=== PATIENT | female | born 1935 | race Hispanic/Latino ===

== ENCOUNTER 2016-05-25 10:52 | Inpatient (IN) | payer MEDICARE ==
--- NOTE | 2016-05-25 12:04 | XRay Report ---
AP CHEST History: Chest pain. Findings: There is mild diffuse interstitial coarsening. The lungs are hyperexpanded but clear. No infiltrate, pleural fluid or pneumothorax is detected. The cardiac silhouette and pulmonary vasculature are within normal limits for technique. The bony thorax is unremarkable. IMPRESSION: Changes consistent with COPD. No acute cardiopulmonary process.
[2016-05-25 12:08] LABS: Creatine Kinase MB 1.4 ng/mL (0.0-4.0)
[2016-05-25 12:10] LABS: Basophils % (Auto) 0.9 % (0.0-1.8); Eosinophils % (Auto) 0.8 % (0.0-4.3); Mean Corpuscular HGB Conc 32 % (30-34); Mean Corpuscular Hemoglobin 30 pg (28-32); Mean Corpuscular Volume 96 fl (79-97); Platelet Count 256 K/mm3 (140-440); Red Blood Count 3.98 M/mm3 (3.65-5.03); Red Cell Distribution Width 14.1 % (13.2-15.2)
[2016-05-25 12:13] LABS: Calcium 9.1 mg/dL (8.4-10.2); Chloride 99.4 mmol/L (98-107); Potassium 4.1 mmol/L (3.6-5.0)
--- NOTE | 2016-05-25 13:02 | Emergency Department Report ---
HPI - General Chief Complaint: Chest Pain Time Seen by Provider: 05/25/16 11:36 - HPI HPI: Chief complaint: Difficulty swallowing HPI: Patient is a 80-year-old female with a history of COPD he was recently in the hospital for COPD exacerbation and pneumonia. Patient seems to be having increasing difficulty swallowing ever since discharge 2-3 weeks ago. However over the last week it has gotten significantly worse to the point where she is unable to keep anything down liquid or food. Patient states that when she was in the hospital for pneumonia she had a upper endoscopy done by Dr. Fernandez that the family states was negative. According to the family this was done for some sort of slow bleed. Patient also had a colonoscopy. Mode of arrival: EMS Source: Patient and family member] Began: See above Duration: See above Context: Patient has COPD and still smokes about 3 cigarettes a day. Patient also has history of depression. Since she came home from the hospital her family states initially she would not use her nebulizer treatments. Patient is on home O2 all the time. Quality: Patient denies chest pain but states when she drinks something she feels a knot in her chest. Severity: 6 out of 10 Improved with: Nothing Worsened with: Drinking Associated signs and symptoms: No fever, nausea, vomiting or diarrhea ED Past Medical Hx - Past Medical History Previous Medical History?: Yes Hx Hypertension: Yes Hx Heart Attack/AMI: Yes Hx Congestive Heart Failure: Yes Hx COPD: Yes Additional medical history: Fibromyalgia. Osteoporosis. High cholesterol. Abdominal aneruysm. Dementia - Surgical History Hx Coronary Stent: Yes Hx Cholecystectomy: Yes Hx Appendectomy: Yes Additional Surgical History: stent placed june 2014 - Social History Smoking Status: Current Every Day Smoker (3 cigarettes per day) Substance Use Type: None - Medications Home Medications: Home Medications Medication Instructions Recorded Confirmed Last Taken Type Atorvastatin (Nf) [Lipitor] 10 mg PO QHS 06/23/14 07/15/14 10/13/15 History Levothyroxine Sodium [Synthroid] 175 mcg PO QDAY 06/23/14 07/15/14 10/13/15 History Albuterol *Only Ed* [Proventil 2.5 mg IH Q3HRT PRN #60 nebu 06/28/14 07/15/14 10/13/15 Rx 0.5% NEBS] Clopidogrel [Plavix] 75 mg PO BID #60 tablet 06/28/14 07/15/14 10/06/15 Rx Ipratropium/Albuterol Sulfate 1 ampul IH TID #60 ampul.neb 06/28/14 07/15/1403/29 Rx [Duoneb 0.5 mg-3 mg/3 ml Soln] Nebulizer [Compact Ultrasonic 1 each MC QDAY #1 kit 06/28/14 07/15/14 10/13/15 Rx Nebulizer] Nitroglycerin [Nitro Dur] 0.4 mg TD DAILY@0600 #30 patch 06/28/14 07/15/1410/12 Rx HYDROcodone/APAP 10-325 [[place] 1 each PO Q6HR PRN 07/15/14 07/15/14 10/13/15 History 10-325 mg TAB] Potassium Chloride [K-Dur] 20 meq PO QDAY 07/15/14 07/15/14 10/13/15 History Carvedilol [Coreg] 25 mg PO BID #60 tablet 07/18/14 10/13/15 Rx Fluticasone/Salmeterol [Advair 1 puff IH BID #3 disk.w.dev 07/18/14 10/13/15 Rx Diskus 500-50 mcg] Lisinopril [Zestril TAB] 20 mg PO QHS #30 tablet 07/18/14 10/13/15 Rx Tiotropium [Spiriva] 18 mcg IH QDAY 30 Days 07/18/14 10/13/15 Rx predniSONE [Deltasone] 2 tab PO QDAY #7 tablet 07/18/14 10/13/15 Rx ED Review of Systems ROS: Stated complaint: NAUSEA/VOMITING Other details as noted in HPI ROS Constitutional: No fever ENT: No uri symptoms Cardiovascular: No chest pain Respiratory: Chronic sob and cough GI: No nausea vomiting or diarrhea : No dysuria frequency or urgency, Skin: No rash Neuro: No focal weakness or numbness Psych: No depression Noel/lymph: No edema Physical Exam - Physical Exam Vital Signs: Vital Signs 05/25/16 05/25/16 05/25/16 11:19 11:28 11:33 Temperature 98.4 F Pulse Rate 65 Respiratory 19 19 Rate Blood Pressure 143/78 O2 Sat by Pulse 100 Oximetry Physical Exam: GENERAL: The patient is a thin elderly female who appears chronically ill. Patient's vital signs are stable. HEENT: Normocephalic. Atraumatic. Extraocular motions are intact. Patient has moist mucous membranes. NECK: Supple. No meningitic signs are noted. There is no adenopathy noted. CHEST/LUNGS: A few coarse end-expiratory rhonchi. There is no respiratory distress noted. HEART/CARDIOVASCULAR: Regular. There is no tachycardia. There is no gallop rub or murmur. ABDOMEN: Abdomen is soft, nontender. Patient has normal bowel sounds. There is no abdominal distention. SKIN: There is no rash. There is no edema. There is no diaphoresis. NEURO: The patient is awake, alert, and oriented. The patient is cooperative. The patient has no focal neurologic deficits. The patient has normal speech. MUSCULOSKELETAL: There is no tenderness or deformity. There is no limitation range of motion. There is no evidence of acute injury. ED Course Vital Signs 05/25/16 05/25/16 05/25/16 11:19 11:28 11:33 Temperature 98.4 F Pulse Rate 65 Respiratory 19 19 Rate Blood Pressure 143/78 O2 Sat by Pulse 100 Oximetry - Reevaluation(s) Reevaluation #1: 05/25/16 13:03 Patient was given a trial of water and was able to swallow it briefly but it immediately came back up ED Medical Decision Making - Lab Data Result diagrams: 05/25/16 11:29 05/25/16 11:29 Laboratory Tests 05/25/16 11:29 Calcium 9.1 Total Creatine Kinase 27 L CK-MB (CK-2) 1.4 CK-MB (CK-2) Rel Index 5.1 H Troponin T 0.015 - EKG Data -: EKG Interpreted by Ks EKG shows normal: sinus rhythm Rate: normal (71) - EKG Data When compared to previous EKG there are: previous EKG unavailable Interpretation: normal EKG - Radiology Data Radiology results: report reviewed (chest x-ray shows COPD otherwise no acute process.) Critical care attestation.: If time is entered above; I have spent that time in minutes in the direct care of this critically ill patient, excluding procedure time. ED Disposition Clinical Impression: Dysphagia Qualifiers: Dysphagia type: unspecified Qualified Code(s): R13.10 - Dysphagia, unspecified Disposition: OP ADMITTED IP TO THIS HOSP Is pt being admited?: Yes Does the pt Need Aspirin: Yes Condition: Fair Time of Disposition: 13:08 (admit to the hospitalist)
--- NOTE | 2016-05-25 13:29 | Admit Criteria Form ---
Admission Criteria Documentation: GASTROENTEROLOGY GRG Clinical Indications for Admission to Inpatient Care (Place 'X' for any and all applicable criteria): Hospital admission is needed for appropriate care of the patient because of ANY ONE of the following: [ ]I. Hemoperitoneum(7) [ ]II. Ascites requiring acute treatment indicated by ANY ONE of the following( 8)(9): [ ]a) Hemodynamic instability remaining after emergency or observation level care (as appropriate) [ ]b) Peritoneal signs present (eg, abdominal rigidity, rebound tenderness, absent bowel sounds) [ ]c) Tachypnea, Hypoxemia, or other respiratory symptoms remain after emergency or observation level care (as appropriate) [ ]d) Suspected infected ascites as indicated by ANY ONE of the following: [ ]i) Temperature greater than 100 degrees F (37.8 degrees C) [ ]ii) Abdominal pain or tenderness not relieved by paracentesis [ ]iii) Systemic signs of infection (eg, elevated WBC count, fever) [ ]iv) Ascitic fluid analysis consistent with infection ( eg, elevated WBC count): [ ]v) Vital sign abnormality [ ]III. Suspected acute intra-abdominal process indicated by ANY ONE of the following(1)(2)(3)(4)(5): [ ]a) Hemodynamic instability [ ]b) Peritoneal signs present (eg, abdominal rigidity, rebound tenderness, absent bowel sounds) [ ]c) Bowel obstruction suspected (eg, severe vomiting, abdominal distension) [ ]d) Suspected mesenteric ischemia or ischemic colitis(6) [ ]e) Other signs or symptoms of acute abdominal disease (eg, severe pain, free air): [ ]IV. Severe liver disease indicated by ANY ONE of the following(8)(9)(10)(11)( 12)(13)(14): [ ]a) Acute hepatitis (eg, transaminase level greater than 1000 IU/L) [ ]b) Acute elevation of prothrombin time to more than 50% above normal or INR greater than 1.5 [ ]c) Bilirubin greater than 20 mg/dL (342 micromoles/L) (15) [ ]d) New-onset or worsening hepatic encephalopathy [ ]e) Acute liver necrosis [ ]f) Vomiting or dehydration that is severe of persistent [ ]g) Hemodynamic instability due to liver disease [ ]h) Acute renal failure [ ]i) Hepatic abscess [ ]j) Dehydration that is severe or persistent [ ]k) Hepatic hydrothorax(21) [ ]l) Other indications of severe liver disease (eg, persistent fever , ingestion of hepatotoxin) [ ]V. Severe diarrhea indicated by ANY ONE of the following(17)(18)(19)(20)(21)( 22)(23): [ ]a) High fever or other high-risk infection situation [ ]b) Intractable bloody diarrhea (eg, more than 6 bloody stools per day) [ ]c) Suspected Clostridium difficile-associated diarrhea(24) [ ]d) Change in mental status that persists after emergency or observation level care (as appropriate) [ ]e) Severe dehydration (eg, greater than 9% loss of body weight in children) [ ]f) Inability to maintain hydration [ ]g) Peritoneal signs present (eg, abdominal rigidity, rebound tenderness, absent bowel sounds) [ ]h) Abdominal ischemia suspected(6) [ ]i) Hemodynamic instability that persists after emergency or observation level care (as appropriate) [ ]j) Severe electrolyte abnormalities requiring inpatient care [ ]k) Acute renal failure [ ]. Suspected toxic megacolon(5)(6) [X]VII.Severe dysphagia indicated by ANY ONE of the following(25)(26): [ ]a) Suspected esophageal perforation or fistula(27) []b) Suspected cause that requires inpatient care (eg, caustic ingestion, severe esophagitis) (28) [ ]c) Severe dehydration (eg, greater than 9% loss of body weight in children) [X]d) Inability to manage secretions or maintain hydration [ ]e) Hemodynamic instability that persists after emergency or observation level care (as appropriate) [ ]f) Severe electrolyte abnormalities requiring inpatient care [ ]g) Acute renal failure [ ]VIII.Vomiting and ANY ONE of the following (29)(30)(31)(32): [ ]a) High fever or other high-risk infection situation [ ]b) Change in mental status that persists after emergency or observation level care (as appropriate) [ ]c) Severe dehydration (e.g., greater than 9% loss of body weight in children) [ ]d) Peritoneal signs present (e.g., abdominal rigidity, rebound tenderness, absent bowel sounds) [ ]e) Hemodynamic instability that persists after emergency or observation level care (as appropriate) [ ]f) Severe electrolyte abnormalities requiring inpatient care [ ]g) Acute renal failure [ ]h) Bowel obstruction suspected (e.g., severe vomiting, abdominal distension) [ ]i) Vomiting that is severe or persistent after medical treatment [ ]IX. Significant dehydration indicated by ANY ONE of the following(23)(24)(25) [ ]a) Clinical findings of severe dehydration indicated by ANY ONE of the following: [ ]i) Acute loss of weight from baseline (5% of body weight in adults, 9% in pediatric patients) [ ]ii) Hemodynamic instability [ ]iii) Acute renal failure [ ]iv) Serum sodium greater than 150 mEq/L (mmol/L) [ ]b) Dehydration that is persistent indicated by ALL of the following: [ ]i) Oral rehydration therapy not tolerated or insufficient to adequately correct dehydration [ ]ii) Appropriate intravenous treatment (eg, fluids) does not readily correct dehydration hours of (ie, after 12 to 24 of treatment) [ ]X. Gastroparesis and ANY ONE of the following(37)(38)(39): [ ]a) Dehydration that is severe or persistent [ ]b) Severe electrolyte abnormalities requiring inpatient care [ ]c) Acute renal failure [ ]d) Vomiting that is severe or persistent [ ]XI. Complications of transplanted liver indicated by ANY ONE of the following (40)(41): [ ]a) Acute graft rejection requiring inpatient management (eg, intravenous immunosuppression)(42) [ ]b) Failure of transplanted liver as indicated by ANY ONE of the following: [ ]i) Acute hepatitis (eg, transaminase level greater than 1000 International Units per liter (IU/L)) [ ]ii) Acute elevation of prothrombin time to more than 50% above baseline or INR greater than 1.5 [ ]iii) Bilirubin greater than 20 mg/dL (342 micromoles/L) [ ]iv) New-onset or worsening hepatic encephalopathy [ ]v) Acute elevation of serum ammonia level (eg, greater than 210 mcg/dL (150 micromoles/L)) [ ]vi) Acute liver necrosis [ ]c) Infection requiring inpatient management (eg, Hemodynamic instability, need for intravenous antimicrobial treatment)(43)(44)(45)(46)(47)(48)(49)(50) [ ]d) Other complication of transplanted liver (eg, thrombosis, autoimmune hepatitis, variceal bleeding) requiring inpatient management(51)(52) [ ]XII Complications of transplanted pancreas indicated by ANY ONE of the following(53): [ ]a) Acute graft rejection requiring inpatient management (eg, intravenous immunosuppression)(42)(54) [ ]b) Failure of transplanted pancreas as indicated by ANY ONE of the following: [ ]i) Serum amylase greater than 3 times the upper limit of normal or baseline [ ]ii) Serum lipase greater than 3 times the upper limit of normal or baseline [ ]iii) Imaging findings consistent with pancreatic inflammation or necrosis [ ]c) Infection requiring inpatient management (eg, Hemodynamic instability, need for intravenous antimicrobial treatment)(43)(44)(45)(46)(47)(48)(49)(50) [ ]d) Other complication of transplanted liver (eg, thrombosis, autoimmune hepatitis, variceal bleeding) requiring inpatient management(51)(52) [ ]X. Gastroenterology condition and ALL of the following: [ ]a) Symptom or finding for which emergency and observation care have failed or are not considered appropriate (Also use General Criteria: Observation Care as appropriate) [ ]b) Presence of ANY ONE of the following: [ ]i) A General Admission Criteria [ ]ii) A Pediatric General Admission Criteria. The original [facility] [employer] content created by [facility] has been revised. The portions of the content which have been revised are identified through the use of italic text or in bold,and [facility] has neither reviewed nor approved the modified material. All other unmodified content is copyright [facility]. Please see references footnoted in the original [facility] edition 2016 Admission Criteria Met: Yes
--- NOTE | 2016-05-25 16:01 | History and Physical Report ---
History of Present Illness Date of examination: 05/25/16 Date of admission: 05/25/16 13:11 Chief complaint: Difficulty swallowing-1 week History of present illness: HPI: Patient is a 80-year-old female with a history of COPD he was recently in the hospital for COPD exacerbation and pneumonia. Patient seems to be having increasing difficulty swallowing ever since discharge 2-3 weeks ago. However over the last week it has gotten significantly worse to the point where she is unable to keep anything down liquid or food. Patient states that when she was in the hospital for pneumonia she had a upper endoscopy done by Dr. Fernandez that the family states was negative. According to the family this was done for some sort of slow bleed. Patient also had a colonoscopy. Mode of arrival: EMS Source: Patient and family member] Began: See above Duration: See above Context: Patient has COPD and still smokes about 3 cigarettes a day. Patient also has history of depression. Since she came home from the hospital her family states initially she would not use her nebulizer treatments. Patient is on home O2 all the time. Quality: Patient denies chest pain but states when she drinks something she feels a knot in her chest. Severity: 6 out of 10 Improved with: Nothing Worsened with: Drinking Associated signs and symptoms: No fever, nausea, vomiting or diarrhea Past History Past Medical History: atrial fib, CAD, COPD, hyperlipidemia, hypothyroidism Past Surgical History: appendectomy, cholecystectomy, PTCA (Stent x1) Medications and Allergies Allergies Allergy/AdvReac Type Severity Reaction Status Date / Time aspirin Allergy Angioedema Verified 06/23/14 18:37 Penicillins Allergy Angioedema Verified 06/23/14 18:37 Home Medications Medication Instructions Recorded Confirmed Last Taken Type Atorvastatin (Nf) [Lipitor] 10 mg PO QHS 06/23/14 05/25/16 10/13/15 History Levothyroxine Sodium [Synthroid] 175 mcg PO QDAY 06/23/14 05/25/16 10/13/15 History Albuterol *Only Ed* [Proventil 2.5 mg IH Q3HRT PRN #60 nebu 06/28/14 05/25/16 10/13/15 Rx 0.5% NEBS] Clopidogrel [Plavix] 75 mg PO BID #60 tablet 06/28/14 05/25/16 10/06/15 Rx Ipratropium/Albuterol Sulfate 1 ampul IH TID #60 ampul.neb 06/28/14 05/25/1603/29 Rx [Duoneb 0.5 mg-3 mg/3 ml Soln] Nebulizer [Compact Ultrasonic 1 each MC QDAY #1 kit 06/28/14 05/25/16 10/13/15 Rx Nebulizer] Nitroglycerin [Nitro Dur] 0.4 mg TD DAILY@0600 #30 patch 06/28/14 05/25/1610/12 Rx HYDROcodone/APAP 10-325 [[place] 1 each PO Q6HR PRN 07/15/14 05/25/16 10/13/15 History 10-325 mg TAB] Potassium Chloride [K-Dur] 20 meq PO QDAY 07/15/14 05/25/16 10/13/15 History Carvedilol [Coreg] 25 mg PO BID #60 tablet 07/18/14 05/25/16 10/13/15 Rx Fluticasone/Salmeterol [Advair 1 puff IH BID #3 disk.w.dev 07/18/14 05/25/1603/29 Rx Diskus 500-50 mcg] Lisinopril [Zestril TAB] 20 mg PO QHS #30 tablet 07/18/14 05/25/16 10/13/15 Rx Tiotropium [Spiriva] 18 mcg IH QDAY 30 Days 07/18/14 05/25/16 10/13/15 Rx predniSONE [Deltasone] 2 tab PO QDAY #7 tablet 07/18/14 10/13/15 Rx Pantoprazole [Protonix] 40 mg PO QDAY 05/25/16 05/25/16 Unknown History Sertraline [Zoloft] 25 mg PO QDAY 05/25/16 05/25/16 Unknown History Review of Systems All systems: negative Constitutional: no weight loss, no weight gain Ears, nose, mouth and throat: dysphagia, no hoarseness, no sore throat Cardiovascular: no chest pain, no orthopnea, no lightheadedness, no shortness of breath Respiratory: no shortness of breath, no dyspnea on exertion, no congestion Gastrointestinal: no nausea, no vomiting, no diarrhea, no constipation, no change in bowel habits Musculoskeletal: no neck pain, no shooting arm pain, no arm numbness/tingling, no low back pain Integumentary: no rash, no pruritis, no redness, no sores Neurological: no seizures, no syncope Psychiatric: no anxiety, no depression Endocrine: no cold intolerance, no heat intolerance, no polyphagia, no excessive thirst, no polydipsia, no polyuria, no nocturia, no excessive sweating Hematologic/Lymphatic: no easy bruising, no easy bleeding Allergic/Immunologic: no urticaria, no allergic rhinitis, no wheezing Exam - Physical Exam Narrative exam: well developed well nourished female. - Constitutional Vitals: Temp Pulse Resp BP Pulse Ox 97.5 F L 66 16 188/80 99 05/25/16 15:05 05/25/16 15:05 05/25/16 15:05 05/25/16 15:05 05/25/16 15:05 General appearance: Present: no acute distress, well-nourished - EENT Eyes: Present: PERRL ENT: hearing intact, clear oral mucosa - Neck Neck: Present: supple, normal ROM - Respiratory Respiratory effort: normal Respiratory: bilateral: CTA - Cardiovascular Heart Sounds: Present: S1 & S2. Absent: rub, click - Extremities Extremities: pulses symmetrical, No edema Peripheral Pulses: within normal limits - Abdominal General gastrointestinal: Present: soft, non-tender, non-distended, normal bowel sounds Female genitourinary: Present: normal - Integumentary Integumentary: Present: clear, warm, dry - Musculoskeletal Musculoskeletal: gait normal, strength equal bilaterally - Psychiatric Psychiatric: appropriate mood/affect, intact judgment & insight - Neurologic Neurologic: CNII-XII intact, moves all extremities Results - Labs CBC & Chem 7: 05/25/16 11:29 05/25/16 11:29 Labs: Laboratory Last Values WBC 7.0 K/mm3 (4.5-11.0) 05/25/16 11:29 RBC 3.98 M/mm3 (3.65-5.03) 05/25/16 11:29 Hgb 12.0 gm/dl (10.1-14.3) 05/25/16 11:29 Hct 38.0 % (30.3-42.9) 05/25/16 11:29 MCV 96 fl (79-97) 05/25/16 11:29 MCH 30 pg (28-32) 05/25/16 11:29 MCHC 32 % (30-34) 05/25/16 11:29 RDW 14.1 % (13.2-15.2) 05/25/16 11:29 Plt Count 256 K/mm3 (140-440) 05/25/16 11:29 Lymph % (Auto) 10.1 % (13.4-35.0) L 05/25/16 11:29 [place] % (Auto) 7.6 % (0.0-7.3) H 05/25/16 11:29 Eos % (Auto) 0.8 % (0.0-4.3) 05/25/16 11:29 Baso % (Auto) 0.9 % (0.0-1.8) 05/25/16 11:29 Lymph # 0.7 K/mm3 (1.2-5.4) L 05/25/16 11:29 [place] # 0.5 K/mm3 (0.0-0.8) 05/25/16 11:29 Eos # 0.1 K/mm3 (0.0-0.4) 05/25/16 11:29 Baso # 0.1 K/mm3 (0.0-0.1) 05/25/16 11:29 Seg Neutrophils % 80.6 % (40.0-70.0) H 05/25/16 11:29 Seg Neutrophils # 5.7 K/mm3 (1.8-7.7) 05/25/16 11:29 Sodium 143 mmol/L (137-145) 05/25/16 11:29 Potassium 4.1 mmol/L (3.6-5.0) 05/25/16 11:29 Chloride 99.4 mmol/L (98-107) 05/25/16 11:29 Carbon Dioxide 23 mmol/L (22-30) 05/25/16 11:29 Anion Gap 25 mmol/L 05/25/16 11:29 BUN 24 mg/dL (7-17) H 05/25/16 11:29 Creatinine 1.5 mg/dL (0.7-1.2) H 05/25/16 11:29 Estimated GFR 34 ml/min 05/25/16 11:29 BUN/Creatinine Ratio 16.00 % 05/25/16 11:29 Glucose 91 mg/dL (65-100) 05/25/16 11:29 Calcium 9.1 mg/dL (8.4-10.2) 05/25/16 11:29 Total Creatine Kinase 27 units/L (30-135) L 05/25/16 11:29 CK-MB (CK-2) 1.4 ng/mL (0.0-4.0) 05/25/16 11:29 CK-MB (CK-2) Rel Index 5.1 (0-4) H 05/25/16 11:29 Troponin T 0.015 ng/mL (0.00-0.029) 05/25/16 11:29 Short CBC 05/25/16 Range/Units 11:29 WBC 7.0 (4.5-11.0) K/mm3 Hgb 12.0 (10.1-14.3) gm/dl Hct 38.0 (30.3-42.9) % Plt Count 256 (140-440) K/mm3 BMP 05/25/16 11:29 Sodium 143 Potassium 4.1 Chloride 99.4 Carbon Dioxide 23 BUN 24 H Creatinine 1.5 H Glucose 91 Calcium 9.1 Cardiac Enzymes 05/25/16 Range/Units 11:29 Total Creatine Kinase 27 L (30-135) units/L CK-MB (CK-2) 1.4 (0.0-4.0) ng/mL Troponin T 0.015 (0.00-0.029) ng/mL - Imaging and Cardiology Chest x-ray: report reviewed (c/w Copd) Assessment and Plan Advance Directives: Yes (Full code) VTE prophylaxis?: Chemical - Patient Problems (1) Dysphagia Current Visit: Yes Status: Acute Qualifiers: Dysphagia type: pharyngoesophageal phase Qualified Code(s): R13.14 - Dysphagia, pharyngoesophageal phase Plan to address problem: Work up for dyphagia.R/o Dysmotility /severe reflux/Esophagitis and esophageal ulcer. GI consult requested. (2) COPD exacerbation Current Visit: No Status: Acute Plan to address problem: Cont neb tx and low dose steroids. (3) CAD (coronary artery disease) Current Visit: No Status: Chronic Qualifiers: Coronary Disease-Associated Artery/Lesion type: [place] artery [place] vs. transplanted heart: N Associated angina: A (4) HTN (hypertension) Current Visit: No Status: Chronic Qualifiers: Hypertension type: essential hypertension Qualified Code(s): I10 - Essential (primary) hypertension Plan to address problem: cont antihypertensives (5) Hyperlipidemia Current Visit: No Status: Chronic Qualifiers: Hyperlipidemia type: mixed hyperlipidemia Qualified Code(s): E78.2 - Mixed hyperlipidemia Plan to address problem: Cont statins (6) Hypothyroidism Current Visit: Yes Status: Chronic Qualifiers: Hypothyroidism type: acquired Qualified Code(s): E03.9 - Hypothyroidism, unspecified Plan to address problem: Cont synthyroid . (7) DVT prophylaxis Current Visit: No Status: Acute Plan to address problem: On Lovenox
[2016-05-25] MEDS: NACL 0.9% 1000 ML 1,000 ML IV SCH (17:40)
[2016-05-25] MEDS: PERCOCET 5/325 PO PRN ×2 (17:40→23:06)
[2016-05-26] MEDS: PERCOCET 5/325 PO PRN ×2 (12:16→19:13)
--- NOTE | 2016-05-26 19:21 | Progress Note ---
Assessment and Plan 1. Severe dysphagia: Obtain GI consult. Patient stated that she said recent EGD. However she cannot swallow. Consider barium swallow studies 2. COPD: Continue bronchodilators and supplemental oxygen. Pulse ox on room to be monitored. 3. Recent hospital admission for pneumonia. Symptoms resolved. We'll continue same management 4. Acute renal injury: Elevated creatinine of 1.5. Gentle hydration, trends BUN, Creatinine. 4. DVT prophylaxis with Lovenox, GI prophylaxis with Protonix Subjective Date of service: 05/26/16 Principal diagnosis: severe dysphagia, unable to keep any food down COPD, Interval history: Still has dysphagia and unable to keep any food down. Occasional shortness of breath. Today for pneumonia recently. Objective - Constitutional Vitals: Vital Signs - 12hr 05/26/16 05/26/16 05/26/16 08:00 12:00 15:56 Temperature 98.4 F 98.3 F 98.7 F Pulse Rate [ 60 68 63 Left Radial] Respiratory 18 16 18 Rate Blood Pressure 100/53 90/52 103/54 [Left Arm] O2 Sat by Pulse 98 98 98 Oximetry General appearance: Present: no acute distress, other (emaciated) - EENT Eyes: PERRL - Neck Neck: supple, normal ROM - Respiratory Respiratory: bilateral: CTA - Cardiovascular Rhythm: regular Heart Sounds: Present: S1 & S2 Extremities: no ischemia, No edema - Gastrointestinal General gastrointestinal: Present: soft, non-tender, non-distended - Integumentary Integumentary: clear, warm, dry - Musculoskeletal Musculoskeletal: strength equal bilaterally - Neurologic Neurologic: CNII-XII intact, moves all extremities - Psychiatric Psychiatric: appropriate mood/affect - Labs CBC & Chem 7: 05/25/16 11:29 05/25/16 11:29
[2016-05-26] MEDS: NACL 0.9% 1000 ML 1,000 ML IV SCH (19:38)
--- NOTE | 2016-05-26 22:20 | Gastroenterology Consultation ---
History of Present Illness - Reason for Consult Consult date: 05/26/16 dysphagia Requesting physician: SHAYNA JOSEPH - History of Present Illness Ms Rosales is a 80 yo female who presents with worsening sob, and complaints of chronic dysphagia. Patient with h/o COPD and recent admission for pneumonia. She reports chronic dysphagia to solids and liquids. Pt reports recent endoscopy but unable to recall details of findings. She has previously been seen by GI on admissions from 2014. It was felt she had severe esophageal dysmotility as the cause of her symptoms with plans for possible manometry. Past History Past Medical History: atrial fib, CAD, COPD, hyperlipidemia, hypothyroidism Medications and Allergies Allergies Allergy/AdvReac Type Severity Reaction Status Date / Time aspirin Allergy Angioedema Verified 06/23/14 18:37 Penicillins Allergy Angioedema Verified 06/23/14 18:37 Home Medications Medication Instructions Recorded Confirmed Last Taken Type Atorvastatin (Nf) [Lipitor] 10 mg PO QHS 06/23/14 05/25/16 10/13/15 History Levothyroxine Sodium [Synthroid] 175 mcg PO QDAY 06/23/14 05/25/16 10/13/15 History Albuterol *Only Ed* [Proventil 2.5 mg IH Q3HRT PRN #60 nebu 06/28/14 05/25/16 10/13/15 Rx 0.5% NEBS] Clopidogrel [Plavix] 75 mg PO BID #60 tablet 06/28/14 05/25/16 10/06/15 Rx Ipratropium/Albuterol Sulfate 1 ampul IH TID #60 ampul.neb 06/28/14 05/25/1603/29 Rx [Duoneb 0.5 mg-3 mg/3 ml Soln] Nebulizer [Compact Ultrasonic 1 each MC QDAY #1 kit 06/28/14 05/25/16 10/13/15 Rx Nebulizer] Nitroglycerin [Nitro Dur] 0.4 mg TD DAILY@0600 #30 patch 06/28/14 05/25/1610/12 Rx HYDROcodone/APAP 10-325 [[place] 1 each PO Q6HR PRN 07/15/14 05/25/16 10/13/15 History 10-325 mg TAB] Potassium Chloride [K-Dur] 20 meq PO QDAY 07/15/14 05/25/1610/12/16 History Carvedilol [Coreg] 25 mg PO BID #60 tablet 07/18/14 05/25/16 10/13/15 Rx Fluticasone/Salmeterol [Advair 1 puff IH BID #3 disk.w.dev 07/18/14 05/25/1603/29 Rx Diskus 500-50 mcg] Lisinopril [Zestril TAB] 20 mg PO QHS #30 tablet 07/18/14 05/25/16 10/13/15 Rx Tiotropium [Spiriva] 18 mcg IH QDAY 30 Days 07/18/14 05/25/16 10/13/15 Rx predniSONE [Deltasone] 2 tab PO QDAY #7 tablet 07/18/14 10/13/15 Rx Pantoprazole [Protonix] 40 mg PO QDAY 05/25/16 05/25/16 Unknown History Sertraline [Zoloft] 25 mg PO QDAY 05/25/16 05/25/16 Unknown History Active Meds: Active Medications Sodium Chloride (Nacl 0.9% 1000 Ml) 1,000 mls @ 100 mls/hr IV DIRECT FLETCHER Last Admin: 05/26/16 19:38 Dose: 100 mls/hr Oxycodone/Acetaminophen (Percocet 5/325) 1 tab PO Q6H PRN PRN Reason: Pain, Moderate (4-6) Last Admin: 05/26/16 19:13 Dose: 1 tab Review of Systems - Review of Systems All systems: negative Constitutional: weakness Cardiovascular: shortness of breath (per HPI) Exam - Constitutional Vital Signs: Temp Pulse Resp BP Pulse Ox 98.8 F 69 18 99/50 98 05/26/16 19:50 05/26/16 19:50 05/26/16 19:50 05/26/16 19:50 05/26/16 19:50 General appearance: no acute distress (thin female) - EENT Eyes: PERRL ENT: hearing intact - Neck Neck: supple, normal ROM - Respiratory Respiratory effort: normal Respiratory: bilateral: wheezing - Cardiovascular Rhythm: regular Heart Sounds: Present: S1 & S2 Extremities: no ischemia - Gastrointestinal General gastrointestinal: Present: soft, non-tender, non-distended, normal bowel sounds - Integumentary Integumentary: Present: clear, warm - Musculoskeletal Musculoskeletal: normal - Neurologic Neurological: alert and oriented x3 - Psychiatric Psychiatric: appropriate mood/affect - Labs CBC & Chem 7: 05/25/16 11:29 05/25/16 11:29 - Imaging Other: report reviewed (historical medical records) Assessment and Plan dysphagia - patient with chronic dysphagia to solids and liquids suggestive of possible esophageal dysmotility. Recommend esophogram to rule out mechanical esophageal pathology. If unremarkable, will need manometry as outpatient. Attempt to obtain recent EGD report.
[2016-05-27] MEDS: PERCOCET 5/325 PO PRN ×3 (09:24→23:26)
--- NOTE | 2016-05-27 09:43 | Fluoroscopy Report ---
Barium swallow: History: Dysphagia. Findings: Transit of barium to the cervical esophagus appears normal with marked delayed in transit through the distal third due to marked tertiary contractions. There is also noted moderate dilatation of the esophagus proximal to the area of tertiary contraction with narrowed lumen in the region of the tertiary contractions. Multiple suspected ulceration at the distal third of the esophagus. Extensive reflux is noted extending into the cervical esophagus. No hiatal hernia. Impression: Multiple tertiary contractions in the distal third of the esophagus with areas of ulceration. Reflux noted from the junction of the middle and distal third of the esophagus proximally into cervical esophagus. Esophagoscopy recommended for further evaluation.
--- NOTE | 2016-05-27 11:41 | Gastroenterology Progress Note ---
Assessment and Plan dysphagia - pt with chronic dysphagia with EGD performed ~1 month ago at [facility] for similar symptoms. EGD report reviewed showing distal esophagitis without evidence of esophageal stricture. Pt reports tolerating clears at present time. Esophogram findings reviewed. Cont PPI daily, add carafate, and advance diet as tolerated. Given recent EGD, will hold off on repeating procedure. Likely has esophageal dysmotility as well, which could be evaluated further with manometry as outpatient. Subjective Date of service: 05/27/16 Principal diagnosis: severe dysphagia, unable to keep any food down COPD, Interval history: pt reports tolerating clears, has not had solids today. spoke with pt's daughter over phone who states pt had EGD done at [facility] ~1 month ago for similar symptoms. Objective - Constitutional Vitals: Temp Pulse Resp BP Pulse Ox 98.1 F 65 20 131/60 98 05/27/16 08:15 05/27/16 08:15 05/27/16 09:24 05/27/16 08:15 05/27/16 08:15 General appearance: no acute distress - Respiratory Respiratory effort: normal Respiratory: bilateral: CTA - Cardiovascular Rhythm: regular Heart Sounds: Present: S1 & S2 - Extremities Extremities: No edema - Gastrointestinal General gastrointestinal: Present: soft, non-tender, non-distended, normal bowel sounds - Labs CBC & Chem 7: 05/25/16 11:29 05/25/16 11:29 - Imaging Other: report reviewed (esophogram)
[2016-05-27] MEDS ORDERED: DUONEB 0.5 MG-3 MG/3 ML SOLN IH PRN (11:51)
[2016-05-27] MEDS ORDERED: PROVENTIL IH PRN (12:13)
--- NOTE | 2016-05-27 12:17 | Progress Note ---
Assessment and Plan - Patient Problems (1) Dysphagia Current Visit: Yes Status: Acute Qualifiers: Dysphagia type: pharyngoesophageal phase Qualified Code(s): R13.14 - Dysphagia, pharyngoesophageal phase Plan to address problem: Work up for dyphagia.R/o Dysmotility /severe reflux/Esophagitis and esophageal ulcer. GI consult requested. Barium swallow -Multiple tertiary contractions in the distal third of the esophagus with areas of ulceration.Reflux noted from the junction of tjhe middle and distal third of the esophagus proximally into cervical esophagus.Esophagoscopy recommended for further evaluation. (2) COPD exacerbation Current Visit: No Status: Acute Plan to address problem: Cont neb tx and low dose steroids. (3) CAD (coronary artery disease) Current Visit: No Status: Chronic Qualifiers: Coronary Disease-Associated Artery/Lesion type: [place] artery [place] vs. transplanted heart: N Associated angina: A Plan to address problem: Stable (4) HTN (hypertension) Current Visit: No Status: Chronic Qualifiers: Hypertension type: essential hypertension Qualified Code(s): I10 - Essential (primary) hypertension Plan to address problem: cont antihypertensives (5) Hyperlipidemia Current Visit: No Status: Chronic Qualifiers: Hyperlipidemia type: mixed hyperlipidemia Qualified Code(s): E78.2 - Mixed hyperlipidemia Plan to address problem: Cont statins (6) Hypothyroidism Current Visit: Yes Status: Chronic Qualifiers: Hypothyroidism type: acquired Qualified Code(s): E03.9 - Hypothyroidism, unspecified Plan to address problem: Cont synthyroid . (7) DVT prophylaxis Current Visit: No Status: Acute Plan to address problem: On Lovenox History Interval history: Cont to have difficulty swelling.Had barium swallow today. Hospitalist Physical - Physical exam Narrative exam: well developed well nourished female. - Constitutional Vitals: Temp Pulse Resp BP Pulse Ox 98.1 F 65 20 131/60 98 05/27/16 08:15 05/27/16 08:15 05/27/16 09:24 05/27/16 08:15 05/27/16 08:15 General appearance: Present: no acute distress, well-nourished - EENT Eyes: Present: PERRL, EOM intact ENT: hearing intact, clear oral mucosa - Neck Neck: Present: supple, normal ROM - Respiratory Respiratory effort: normal Respiratory: bilateral: CTA - Cardiovascular Rhythm: regular Heart Sounds: Present: S1 & S2 Peripheral Pulses: within normal limits - Abdominal General gastrointestinal: soft, non-tender, non-distended - Integumentary Integumentary: Present: clear, warm, dry - Psychiatric Psychiatric: appropriate mood/affect, cooperative - Neurologic Neurologic: CNII-XII intact, moves all extremities, gait normal - Allied Health Allied health notes reviewed: nursing Results - Labs CBC & Chem 7: 05/25/16 11:29 05/25/16 11:29 Labs: Laboratory Last Values WBC 7.0 K/mm3 (4.5-11.0) 05/25/16 11: RBC 3.98 M/mm3 (3.65-5.03) 05/25/16 11: Hgb 12.0 gm/dl (10.1-14.3) 05/25/16 11: Hct 38.0 % (30.3-42.9) 05/25/16 11: MCV 96 fl (79-97) 05/25/16 11: MCH 30 pg (28-32) 05/25/16 11: MCHC 32 % (30-34) 05/25/16 11: RDW 14.1 % (13.2-15.2) 05/25/16 11: Plt Count 256 K/mm3 (140-440) 05/25/16 11: Lymph % (Auto) 10.1 % (13.4-35.0) L 05/25/16 11: [place] % (Auto) 7.6 % (0.0-7.3) H 05/25/16 11: Eos % (Auto) 0.8 % (0.0-4.3) 05/25/16 11: Baso % (Auto) 0.9 % (0.0-1.8) 05/25/16 11: Lymph # 0.7 K/mm3 (1.2-5.4) L 05/25/16 11: [place] # 0.5 K/mm3 (0.0-0.8) 05/25/16 11:29 Eos # 0.1 K/mm3 (0.0-0.4) 05/25/16 11: Baso # 0.1 K/mm3 (0.0-0.1) 05/25/16 11:29 Seg Neutrophils % 80.6 % (40.0-70.0) H 05/25/16 11:29 Seg Neutrophils # 5.7 K/mm3 (1.8-7.7) 05/25/16 11:29 Sodium 143 mmol/L (137-145) 05/25/16 11:29 Potassium 4.1 mmol/L (3.6-5.0) 05/25/16 11:29 Chloride 99.4 mmol/L (98-107) 05/25/16 11:29 Carbon Dioxide 23 mmol/L (22-30) 05/25/16 11:29 Anion Gap 25 mmol/L 05/25/16 11:29 BUN 24 mg/dL (7-17) H 05/25/16 11:29 Creatinine 1.5 mg/dL (0.7-1.2) H 05/25/16 11:29 Estimated GFR 34 ml/min 05/25/16 11:29 BUN/Creatinine Ratio 16.00 % 05/25/16 11:29 Glucose 91 mg/dL (65-100) 05/25/16 11:29 Calcium 9.1 mg/dL (8.4-10.2) 05/25/16 11:29 Total Creatine Kinase 27 units/L (30-135) L 05/25/16 11:29 CK-MB (CK-2) 1.4 ng/mL (0.0-4.0) 05/25/16 11:29 CK-MB (CK-2) Rel Index 5.1 (0-4) H 05/25/16 11:29 Troponin T 0.015 ng/mL (0.00-0.029) 05/25/16 11:29
--- NOTE | 2016-05-27 14:24 | Query- Nutrition ---
Kiley Bose Date:_05/27/16 Deck Specialist/CDS:Sj Francis Phone#:_[phone] Exercise your independent professional judgment when responding to query. Questions asked do not imply a particular answer is desired or expected. We greatly appreciate your clarification on this issue. Clinical Documentation States: HPI: Patient is a 80-year-old female with a history of COPD he was recently in the hospital for COPD exacerbation and pneumonia. Patient seems to be having increasing difficulty swallowing ever since discharge 2-3 weeks ago. However over the last week it has gotten significantly worse to the point where she is unable to keep anything down liquid or food. Clinical Findings Show: BMI: 15.9 Lymphocytes: 600 Please select the most appropriate option 3 [] Mild Malnutrition [] Mild - Moderate Malnutrition [] Moderate - Severe Malnutrition [] Severe Malnutrition Serum Albumin 2.8 to 3.4 g/dl or Pre-albumin 5 to 17 mg/dl1,2 Inadequate nutritional intake1,2,3,4 NPO > 5 days Weight loss: 5% in 1 month or 7.5% in 3 months or 10% in 6 months1, 3,4 BMI 16 to 18.4 or Weight <90% of ideal body weight1,2,3,4 Serum Albumin < 2.8 g/ dl1,2 Lymphocytes < 1500/ L2 Inadequate nutritional intake3, high stress e.g. major trauma, sepsis,pancreatitis, vasquez etc. Decubitus ulcers1,2, , skin breakdown2, easy hair pluckability2 Weight <80% standard for height2 Triceps skin fold <3 mm2 Mid-arm muscle circumference <15 cm2 Creatinine-height index <60% standard2 [ ] Cachexia [ ] Emaciated w/Malnutrition [ ] Other: [ ] Unable to determine [ ] Comment/Explanation: Present on Admission: [ ] Yes (Y) [ ] Clinically undeterminable (W) [ ] No ( N) Please also document response in your Progress Notes and/or Discharge Summary and indicate if the condition was present on admission. MTDD
[2016-05-27] MEDS: DUONEB 0.5 MG-3 MG/3 ML SOLN IH SCH ×2 (15:14→19:52)
[2016-05-27] MEDS: NACL 0.9% 1000 ML 1,000 ML IV SCH (16:21)
[2016-05-28] MEDS: NACL 0.9% 1000 ML 1,000 ML IV SCH ×2 (01:42→10:22)
[2016-05-28 02:30] LABS: Bilirubin,Urine NEG (Negative); Blood,Urine NEG (Negative); Ketones,Urine NEG (Negative); Leukocyte Esterase,Urine NEG (Negative); Mucus,Urine FEW /HPF; Nitrite,Urine NEG (Negative); Urobilinogen,Urine < 2.0 mg/dL (<2.0); WBC,Urine < 1.0 /HPF (0.0-6.0)
[2016-05-28] MEDS: DUONEB 0.5 MG-3 MG/3 ML SOLN IH SCH ×3 (02:55→13:32)
[2016-05-28 05:31] LABS: Basophils % (Auto) 0.9 % (0.0-1.8); Eosinophils % (Auto) 2.1 % (0.0-4.3); Hematocrit 27.8 % (30.3-42.9); Mean Corpuscular HGB Conc 32 % (30-34); Mean Corpuscular Hemoglobin 30 pg (28-32); Mean Corpuscular Volume 94 fl (79-97); Platelet Count 177 K/mm3 (140-440); Red Blood Count 2.96 M/mm3 (3.65-5.03); Red Cell Distribution Width 14.4 % (13.2-15.2); White Blood Count 6.6 K/mm3 (4.5-11.0)
[2016-05-28 05:50] LABS: BUN/Creatinine Ratio 17.27; Calcium 7.5 mg/dL (8.4-10.2); Chloride 108.7 mmol/L (98-107); Potassium 3.8 mmol/L (3.6-5.0)
[2016-05-28] MEDS: PERCOCET 5/325 PO PRN (10:22)
--- NOTE | 2016-05-28 12:40 | Discharge Summary ---
Providers - Providers Date of Admission: 05/25/16 13:11 Date of discharge: 05/28/16 Attending physician: NIELS CORDOVA 05/25/16 16:21 Speech Therapy Evaluation and Treat [CONS] Routine Reason For Exam: Dysphagia 05/26/16 11:03 Consult to Physician [CONS] Urgent Consulting Provider: NICOLÁS BRIGHT Reason For Exam: nausea/vomiting Place consult to:: Dr Bright Notified:: office Phone number called:: [phone] Was contact made?: Yes If yes, spoke with:: Tisha Arora called:: 11:05 Primary care physician: [employer] Hospitalization Condition: Fair Disposition: DC TO HOSPICE (HOME) Core Measure Documentation - Palliative Care Palliative Care/ Comfort Measures: Not Applicable - Core Measures Any of the following diagnoses?: none Exam - Constitutional Vitals: Temp Pulse Resp BP Pulse Ox 98.7 F 65 18 118/58 99 05/28/16 09:00 05/28/16 09:00 05/28/16 09:00 05/28/16 09:00 05/28/16 10:26 General appearance: Present: no acute distress, well-nourished - EENT Eyes: Present: PERRL, EOM intact - Neck Neck: Present: supple, normal ROM - Respiratory Respiratory effort: normal Respiratory: bilateral: CTA, negative: rales, rhonchi, wheezing - Cardiovascular Rhythm: regular Heart Sounds: Present: S1 & S2 - Extremities Extremities: no ischemia, pulses intact, pulses symmetrical Peripheral Pulses: within normal limits - Abdominal General gastrointestinal: Present: soft, non-tender, non-distended, normal bowel sounds - Integumentary Integumentary: Present: clear, warm - Musculoskeletal Musculoskeletal: strength equal bilaterally, generalized weakness - Psychiatric Psychiatric: appropriate mood/affect, cooperative - Neurologic Neurologic: moves all extremities Plan Activity: advance as tolerated, fall precautions, other Diet: other (soft /mechnical soft diet and liquids as tolerated) Follow up with: PRIMARY MD DANY [Primary Care Provider] - 3-5 Days NICOLÁS BRIGHT MD [Staff Physician] - 7 Days Prescriptions: Sucralfate [Carafate] 1 gm PO ACHS 30 Days
[2016-05-28 13:14] VITALS: BP 115/57
== END 2016-05-28 15:17 | disposition hospice, home (50) | DRG 682 ==
LOC: ED 10:52 → 3A 13:11
PROVIDERS: ADMIT Internal Medicine; ATTEND Internal Medicine
DX: N17.9 Acute kidney failure, unspecified (principal); J18.9 Pneumonia, unspecified organism; J44.1 Chronic obstructive pulmonary disease with (acute) exacerbation; I25.10 Atherosclerotic heart disease of native coronary artery without angina pectoris; Z87.01 Personal history of pneumonia (recurrent); F17.210 Nicotine dependence, cigarettes, uncomplicated; I25.2 Old myocardial infarction; I50.9 Heart failure, unspecified; I11.0 Hypertensive heart disease with heart failure; F32.9 Major depressive disorder, single episode, unspecified; M79.7 Fibromyalgia; M81.0 Age-related osteoporosis without current pathological fracture; F03.90 Unspecified dementia, unspecified severity, without behavioral disturbance, psychotic disturbance, mood disturbance, and anxiety; Z90.49 Acquired absence of other specified parts of digestive tract; Z98.61 Coronary angioplasty status; E78.5 Hyperlipidemia, unspecified; E03.9 Hypothyroidism, unspecified; Z88.0 Allergy status to penicillin; Z88.6 Allergy status to analgesic agent; R13.14 Dysphagia, pharyngoesophageal phase
CPT/HCPCS: 36415; 71010; 71250; 74220; 80048; 81001; 82550; 82553; 84484; 85025; 93005; 93010; 94640; 94760; 99406; G8996-GN; G8997-GN; J7030